=== PATIENT | female | born 1980 | race Caucasian/White ===

== ENCOUNTER → 2016-03-05 | Outpatient (CLI) | payer OTHER ==
--- NOTE | 2016-03-05 13:39 | US ---
March 05, [address] Corona, Thank you for allowing us to see your patient regarding AMA< CHTN, renal pelvis dilation. As you kno fransisco she is a 35 year-old 1, para 0. Her due date is 04/20/16 which is based on . Her curren t gestational age based on this dating is 33 weeks 3 days. She was seen previously for the same. Number of fetuses: 1 Placental location: posterior no previa presentation: vertex Cervix: 3.7 cm MINH of 10. 5 cm Measurements: Biparietal diameter: 88 mm 35 weeks, 5 days Head circumference: 324 mm 36 weeks, 5 days Abdominal circumference: 308 mm 24 weeks, 6 days Femur length: 687 mm 35 weeks, 0 days Humerus length: 59 mm 34 weeks, 0 days Transcerebellar diameter: 42 mm 33 weeks, 3 days Average ultrasound age: 35 weeks, 4 days Estimated weight: 2586 gm weight percentile: 88 % ANATOMY anatomy was previously assessed. Today the following structures were visualized and appeared n ormal: Supratentorial brain, posterior fossa, cisterna magna 8 mm, lateral ventricle at 5 mm, heart rate 134 bpm, 4 chamber view, stomach, bladder, right and left kidneys Blood pressure today was 124/68. Impression: This is a 35 year-old, 1, para 0at 33 weeks, 3 days gestation. 1. SIUP with biometry cw ga of 33 weeks. Nl MVP. No anatomic abnormalities noted. 2. Pyelectasis resolved 3. CHTN- I reviewed preeclampsia precautions. She will need to start 2/wk NST unless already started and delivery is recommended in the 38th week. Thank you for allowing me to see your patient. Approximately 15 minutes was spent with the patient a nd 15 was spent discussing her issues. Julita Watson MD Perinatologist Division of Maternal Medicine Department of Obstetrics and Gynecology [facility]
--- NOTE | 2016-03-05 15:25 | US ---
Follow Up Obstetrical Sonography CLINICAL HISTORY: 35-year-old female with advanced maternal age and chronic hypertension treated with labetalol, noted in the past to have some mild left renal pelviectasis. TECHNIQUE: A curvilinear 5 MHz transducer was used to sonographically evaluate the fetus and the plac enta. M-mode Doppler is used. Dr. Julita Watson is present. Comparison Studies: Obstetric sonography, dated 01/01/2016 and 01/29/2016. LMP: 07/15/2015, indicating an age of 33 weeks 3 days, and an estimated date of delivery of 04/20/2016. FINDINGS: Again, there is a single viable intrauterine gestation with the fetus cephalic in presentat ion. The placenta is posteriorly situated with no previa. Maternal cervical length is normal, measuri ng 3.7 cm. The amniotic fluid volume is appropriate with a maximal vertical pocket of 3.7 cm, and an amniotic fluid index of 10.5 cm. The heart rate is 134 bpm. anatomy has been evaluated in the past. On today's study, the supra- and infratentorial structu res appear normal. The lateral ventricular diameter is 5 mm, cisterna magna is 8.3 mm. The hear t rate is 134 bpm. There is a 4 chambered heart. The stomach, right and left kidneys, and urinary danni dder are seen. There is no evidence of pelviectasis. biometry is as follows: The biparietal diameter is 88 mm, corresponding to an age of 35 weeks 5 days +/- 3 weeks 1 day, which is at the 94th percentile. The head circumference is 324 mm, corresponding to an age of 36 weeks 5 days +/- 2 weeks 5 days, whic h is at the 89th percentile. The abdominal circumference is 308 mm, corresponding to an age of 34 weeks 6 days +/- 3 weeks 0 days, which is at the 86th percentile. The femur length is 68 mm, corresponding to an age of 35 weeks 0 days +/- 3 weeks 0 days, which is at the 77th percentile. The humeral length is 59 mm, corresponding to an age of 34 weeks 0 days. The transcerebellar diameter is 42 mm, corresponding to an age of 33 weeks 3 days +/- 1 week 2 days, for a composite gestational age of 35 weeks 4 days. The estimated weight is 2586 gm +/- 378 gm, which is 5 lb 11 oz. +/- 13 ounces, which is at the 88th percentile. The head circumference to abdominal circumference ratio is 1.05 which is normal. The femur length to biparietal diameter ratio is normal, measuring 77%, and the femur length to abdominal circumference r atio is normal measuring 22%. IMPRESSION: There is a single viable intrauterine gestation with no overt structural anomaly bruce ving biometry concordant with menstrual dating and demonstrating appropriate interval growth since . Please also refer to Dr. Watson's separate assessments and specific recommendations for follow up.
== END ==
LOC: FIMAGING 12:50
PROVIDERS: ATTEND Obstetrics & Gynecology
DX: O09.513 Supervision of elderly primigravida, third trimester (principal); O10.013 Pre-existing essential hypertension complicating pregnancy, third trimester; O26.893 Other specified pregnancy related conditions, third trimester; Z3A.35 35 weeks gestation of pregnancy

== ENCOUNTER 2016-04-10 20:14 | Inpatient (IN) | payer OTHER ==
[2016-04-10] MEDS ORDERED: LR 1,000 ML IV PRN (20:58)
[2016-04-10] MEDS ORDERED: TERBUTALINE SULFATE 1 MG/ML VIAL IV PRN (20:58)
[2016-04-10] MEDS ORDERED: OXYTOCIN/RINGERS LACTATE 1,000 ML IV PRN (20:58)
[2016-04-10] MEDS ORDERED: LIDOCAINE 1% 30 ML SDV ONE (21:22)
[2016-04-10] MEDS ORDERED: TERBUTALINE SULFATE 1 MG/ML VIAL ONE (21:23)
[2016-04-10] MEDS ORDERED: MISOPROSTOL 200 MCG TAB ONE (21:23)
[2016-04-10] MEDS ORDERED: AMMONIA AROMATIC 1 EACH AMP IH ONE (21:23)
[2016-04-10] MEDS ORDERED: OXYTOCIN 10 UNIT/ML VIAL ONE (21:23)
[2016-04-10] MEDS ORDERED: ACETAMINOPHEN 325 MG TAB PO PRN (21:26)
[2016-04-10] MEDS ORDERED: diphenhydrAMINE 25 MG CAP PO PRN (21:27)
[2016-04-10] MEDS ORDERED: CALCIUM CARBONATE 500 MG CHEWABLE TAB PO PRN (21:27)
[2016-04-10 21:29] LABS: % IMMATURE GRANULYOCYTES 0.4 % (0.0-1.1); ABSOLUTE IMMATURE GRANULOCYTES 0.05 10^3/uL (0.00-0.10); ADD DIFF? NO; ADD MORPH? NO; ADD SCAN? NO; ATYPICAL LYMPHOCYTE FLAG 0 (0-99); FRAGMENT RBC FLAG 0 (0-99); HEMATOCRIT 38.9 % (38.0-47.0); HEMOGLOBIN 13.9 g/dL (12.6-16.3); LEFT SHIFT FLG 0 (0-99); LIPEMIA HEMOLYSIS FLAG 90 (0-99); MEAN CELL HEMOGLOBIN 29.9 pg (27.9-34.1); MEAN CELL HEMOGLOBIN CONCENTR. 35.7 g/dL (32.4-36.7); MEAN CELL VOLUME 83.7 fL (81.5-99.8); MEAN PLATELET VOLUME 10.6 fL (8.7-11.7); PLATELET CLUMPS FLAG 0 (0-99); PLATELET COUNT 162 10^3/uL (150-400); RED BLOOD CELL COUNT 4.65 10^6/uL (4.18-5.33)
[2016-04-10 21:46] LABS: ALANINE AMINOTRANSFERASE 29 IU/L (9-52); ASPARTATE AMINOTRANSFERASE 19 IU/L (14-46); BILIRUBIN,TOTAL 0.7 mg/dL (0.1-1.4); BILIRUBIN-CONJUGATED 0.2 mg/dL (0.0-0.5); BILIRUBIN-UNCONJUGATED 0.5 mg/dL (0.0-1.1); CREATININE 0.5 mg/dL (0.6-1.0); GLOMERULAR FILTRATION RATE > 60; LACTATE DEHYDROGENASE 472 IU/L (313-618); URIC ACID 4.1 mg/dL (2.5-6.8)
[2016-04-11] MEDS ORDERED: OXYTOCIN/LR *STANDARD DOSE PROTOCOL IV SCH (05:00)
--- NOTE | 2016-04-11 08:50 | OBPROG ---
OBG Progress Note Assessment/Plan: Assessment: Pt is a 35 y/o at 38+5 weeks EGA admitted for IOL for CHTN on meds and GDMA1 - doing well Plan: 1) status reassuring 2) Labor: Rodriguez bulb fell out overnight, AROM completed now w/ clear, blood tinged fluid noted. Continue pitocin for IOL. 3) GBS negative 4) CHTN: Will hold AM labetalol since BP's normal and lots of hemodynamic changes in labor may drop BP. PIH labs on admission normal. 5) GDMA1: Well controlled w/ diet. Will check BG levels q4 hrs in labor and notify MD if < 60 or > 200. 04/11/16 08:47 Subjective: Pt has no complaints. Feeling well. Objective: 04/10/16 21:15 04/10/16 21:15 Patient ABO/Rh A POSITIVE 04/10/16 21:15 Uric Acid 4.1 mg/dL (2.5-6.8) 04/10/16 21:15 Total Bilirubin 0.7 mg/dL (0.1-1.4) 04/10/16 21:15 Conjugated Bilirubin 0.2 mg/dL (0.0-0.5) 04/10/16 21:15 Unconjugated Bilirubin 0.5 mg/dL (0.0-1.1) 04/10/16 21:15 AST 19 IU/L (14-46) 04/10/16 21:15 ALT 29 IU/L (9-52) 04/10/16 21:15 Lactate Dehydrogenase 472 IU/L (313-618) 04/10/16 21:15 - SVE Dilation (cm): 4 Effacement (%): 50 Station: -3 Current Contraction Pattern: Irregular FHR (bpm): 140 FHR Pattern Variability: Moderate FHR Category: 1 Membranes: AROM Amniotic Fluid Color: Clear, Blood Tinged ICD10 Worksheet Patient Problems: Problems Problem Status Onset Chronic hypertension during , antepartum Acute Gestational diabetes mellitus (GDM) affecting , antepartum Acute - ICD10 Problem Qualifiers (1) Chronic hypertension during , antepartum (2) Gestational diabetes mellitus (GDM) affecting , antepartum
--- NOTE | 2016-04-11 12:33 | OBPROG ---
OBG Progress Note Assessment/Plan: Assessment: Pt is a 35 y/o at 38+5 weeks EGA admitted for IOL for CHTN on meds and GDMA1 - doing well Plan: 1) status reassuring 2) Labor: Not in active labor yet, no cervical change. Optimize titration of pitocin for IOL. 3) GBS negative 4) CHTN: BP's normal. PIH labs on admission normal. 5) GDMA1: Well controlled w/ diet. Will check BG levels q4 hrs in labor and notify MD if < 60 or > 200. 04/11/16 12:32 Subjective: No complaints, feeling contractions that are very mild. Objective: 04/10/16 21:15 04/10/16 21:15 Patient ABO/Rh A POSITIVE 04/10/16 21:15 Uric Acid 4.1 mg/dL (2.5-6.8) 04/10/16 21:15 Total Bilirubin 0.7 mg/dL (0.1-1.4) 04/10/16 21:15 Conjugated Bilirubin 0.2 mg/dL (0.0-0.5) 04/10/16 21:15 Unconjugated Bilirubin 0.5 mg/dL (0.0-1.1) 04/10/16 21:15 AST 19 IU/L (14-46) 04/10/16 21:15 ALT 29 IU/L (9-52) 04/10/16 21:15 Lactate Dehydrogenase 472 IU/L (313-618) 04/10/16 21:15 - SVE Dilation (cm): 4 Effacement (%): 50 Station: -3 Current Contraction Pattern: Irregular FHR (bpm): 140 FHR Pattern Variability: Moderate FHR Category: 1 Amniotic Fluid Color: Clear ICD10 Worksheet Patient Problems: Problems Problem Status Onset Chronic hypertension during , antepartum Acute Gestational diabetes mellitus (GDM) affecting , antepartum Acute - ICD10 Problem Qualifiers (1) Chronic hypertension during , antepartum (2) Gestational diabetes mellitus (GDM) affecting , antepartum
--- NOTE | 2016-04-11 14:48 | OBPROG ---
OBG Progress Note Assessment/Plan: Assessment: Pt is a 35 y/o at 38+5 weeks EGA admitted for IOL for CHTN on meds and GDMA1 - doing well Plan: 1) status reassuring 2) Labor: IUPC placed for better monitoring of contractions; unable to monitor them on EFM. Cervix is softer, but still 4cm. Continue w/ pitocin. 3) GBS negative 4) CHTN: BP's normal. PIH labs on admission normal. 5) GDMA1: Well controlled w/ diet. Will check BG levels q4 hrs in labor and notify MD if < 60 or > 200. 04/11/16 14:47 Subjective: Pt feeling ctx a bit more. Objective: 04/10/16 21:15 04/10/16 21:15 Patient ABO/Rh A POSITIVE 04/10/16 21:15 Uric Acid 4.1 mg/dL (2.5-6.8) 04/10/16 21:15 Total Bilirubin 0.7 mg/dL (0.1-1.4) 04/10/16 21:15 Conjugated Bilirubin 0.2 mg/dL (0.0-0.5) 04/10/16 21:15 Unconjugated Bilirubin 0.5 mg/dL (0.0-1.1) 04/10/16 21:15 AST 19 IU/L (14-46) 04/10/16 21:15 ALT 29 IU/L (9-52) 04/10/16 21:15 Lactate Dehydrogenase 472 IU/L (313-618) 04/10/16 21:15 - SVE Dilation (cm): 4 Effacement (%): 50 Station: -3 Current Contraction Pattern: Irregular FHR (bpm): 135 FHR Pattern Variability: Moderate FHR Category: 1 Amniotic Fluid Color: Clear ICD10 Worksheet Patient Problems: Problems Problem Status Onset Chronic hypertension during , antepartum Acute Gestational diabetes mellitus (GDM) affecting , antepartum Acute - ICD10 Problem Qualifiers (1) Chronic hypertension during , antepartum (2) Gestational diabetes mellitus (GDM) affecting , antepartum
--- NOTE | 2016-04-11 17:55 | OBPROG ---
OBG Progress Note Assessment/Plan: Assessment: Pt is a 35 y/o at 38+5 weeks EGA admitted for IOL for CHTN on meds and GDMA1 - doing well Plan: 1) status reassuring 2) Labor: IUPC in place. Small cervical change noted, but minimal. MVU's are not adequate, 90-150 max (mostly < 140), and we are at the max pitocin dose of 30 mU/min. Discussed that I recommend stopping the pitocin completely for 45 minutes, and restarting it at half the dose to see if the uterus responds better to the pitocin (since the receptors can sometimes get saturated). She and agree. All questions answered. 3) GBS negative 4) CHTN: BP's normal. PIH labs on admission normal. 5) GDMA1: Well controlled w/ diet. Will check BG levels q4 hrs in labor and notify MD if < 60 or > 200. 04/11/16 17:53 Subjective: Pt feels contractions, ranked 5-6/10. No other complaints. Doing well without pain interventions. Objective: 04/10/16 21:15 04/10/16 21:15 Patient ABO/Rh A POSITIVE 04/10/16 21:15 Uric Acid 4.1 mg/dL (2.5-6.8) 04/10/16 21:15 Total Bilirubin 0.7 mg/dL (0.1-1.4) 04/10/16 21:15 Conjugated Bilirubin 0.2 mg/dL (0.0-0.5) 04/10/16 21:15 Unconjugated Bilirubin 0.5 mg/dL (0.0-1.1) 04/10/16 21:15 AST 19 IU/L (14-46) 04/10/16 21:15 ALT 29 IU/L (9-52) 04/10/16 21:15 Lactate Dehydrogenase 472 IU/L (313-618) 04/10/16 21:15 - SVE Dilation (cm): 5 Effacement (%): 50 Station: -2 Current Contraction Pattern: Regular FHR (bpm): 140 FHR Pattern Variability: Moderate FHR Category: 1 Amniotic Fluid Color: Clear ICD10 Worksheet Patient Problems: Problems Problem Status Onset Chronic hypertension during , antepartum Acute Gestational diabetes mellitus (GDM) affecting , antepartum Acute - ICD10 Problem Qualifiers (1) Chronic hypertension during , antepartum (2) Gestational diabetes mellitus (GDM) affecting , antepartum
--- NOTE | 2016-04-11 21:50 | OBPROG ---
OBG Progress Note Assessment/Plan: Assessment: Pt is a 35 y/o at 38+5 weeks EGA admitted for IOL for CHTN on meds and GDMA1 - doing well Plan: 1) status reassuring 2) Labor: No cervical change noted, still 5/50/-2. Pitocin was stopped for one hour, and then restarted. Pitocin is at 23 mIU/mL, contractions are not adequate w/ MVU's of 90-120. Discussed my concern of lack of cervical change; however, discussed that it can take 18 hrs of being ruptured and on pitocin to get fully into active labor. Since the patient is afebrile and the status is reassuring, it is very reasonable to continue w/ IOL. Reviewed plan to try to get ctx adequate - will recheck her cervix after 2 hours of adequate contractions or after 2 hours of pitocin at 30 mIU/min. 3) GBS negative 4) CHTN: BP's normal. PIH labs on admission normal. 5) GDMA1: Well controlled w/ diet. Will check BG levels q4 hrs in labor and notify MD if < 60 or > 200. 6) Pain: Desires to try nitrous oxide. 04/11/16 21:44 Subjective: Pt breathing through contractions. Objective: 04/10/16 21:15 04/10/16 21:15 Patient ABO/Rh A POSITIVE 04/10/16 21:15 Uric Acid 4.1 mg/dL (2.5-6.8) 04/10/16 21:15 Total Bilirubin 0.7 mg/dL (0.1-1.4) 04/10/16 21:15 Conjugated Bilirubin 0.2 mg/dL (0.0-0.5) 04/10/16 21:15 Unconjugated Bilirubin 0.5 mg/dL (0.0-1.1) 04/10/16 21:15 AST 19 IU/L (14-46) 04/10/16 21:15 ALT 29 IU/L (9-52) 04/10/16 21:15 Lactate Dehydrogenase 472 IU/L (313-618) 04/10/16 21:15 - SVE Dilation (cm): 5 Effacement (%): 50 Station: -2 Current Contraction Pattern: Regular FHR (bpm): 140 FHR Pattern Variability: Moderate FHR Category: 1 Amniotic Fluid Color: Clear ICD10 Worksheet Patient Problems: Problems Problem Status Onset Chronic hypertension during , antepartum Acute Gestational diabetes mellitus (GDM) affecting , antepartum Acute - ICD10 Problem Qualifiers (1) Chronic hypertension during , antepartum (2) Gestational diabetes mellitus (GDM) affecting , antepartum
--- NOTE | 2016-04-12 00:17 | OBPROG ---
OBG Progress Note Assessment/Plan: Assessment: CTSP for FSE placement, but patient adamantly declines letting me place it. Pt is a 35 y/o at 38+5 weeks EGA admitted for IOL for CHTN on meds and GDMA1 - Plan: 1) status reassuring - over all reassuring, moderate variability present, +accels present. Difficulty tracing FHT continuously due to different positions. Patient advised to get FSE, device described and she adamantly refuses it. Will continue to try to monitor closely. No signs of concern during periods of monitoring, and no consistent lack of monitoring that is prolonged. 2) Labor: Declines SVE. Just reached 30 mIU/mL of pitocin. Will recheck around 3am (18 hrs of rupture). 3) GBS negative 4) CHTN: BP's normal. PIH labs on admission normal. 5) GDMA1: Well controlled w/ diet. Will check BG levels q4 hrs in labor and notify MD if < 60 or > 200. 6) Pain: Desires to try nitrous oxide. 04/12/16 00:15 Subjective: Pt feeling contractions. Objective: 04/10/16 21:15 04/10/16 21:15 Patient ABO/Rh A POSITIVE 04/10/16 21:15 Uric Acid 4.1 mg/dL (2.5-6.8) 04/10/16 21:15 Total Bilirubin 0.7 mg/dL (0.1-1.4) 04/10/16 21:15 Conjugated Bilirubin 0.2 mg/dL (0.0-0.5) 04/10/16 21:15 Unconjugated Bilirubin 0.5 mg/dL (0.0-1.1) 04/10/16 21:15 AST 19 IU/L (14-46) 04/10/16 21:15 ALT 29 IU/L (9-52) 04/10/16 21:15 Lactate Dehydrogenase 472 IU/L (313-618) 04/10/16 21:15 DECLINES SVE and FSE Current Contraction Pattern: Regular FHR (bpm): 150 FHR Pattern Variability: Moderate FHR Category: 1 Amniotic Fluid Color: Clear ICD10 Worksheet Patient Problems: Problems Problem Status Onset Chronic hypertension during , antepartum Acute Gestational diabetes mellitus (GDM) affecting , antepartum Acute - ICD10 Problem Qualifiers (1) Chronic hypertension during , antepartum (2) Gestational diabetes mellitus (GDM) affecting , antepartum
--- NOTE | 2016-04-12 03:21 | OBPROG ---
OBG Progress Note Assessment/Plan: Assessment: CTSP for FSE placement, but patient adamantly declines letting me place it. Pt is a 35 y/o at 38+5 weeks EGA admitted for IOL for CHTN on meds and GDMA1 with arrest of dilation Plan: 1) status reassuring - over all reassuring w/ cat 1 FHT 2) Labor: No significant cervical change, still 5-6cm/50/-2. Advised she has been ruptured now 18 hrs, pitocin is at max. Will recheck in 2 hours and if no change, proceed w/ delivery. 3) GBS negative 4) CHTN: BP's normal. PIH labs on admission normal. 5) GDMA1: Well controlled w/ diet. Will check BG levels q4 hrs in labor and notify MD if < 60 or > 200. 6) Pain: Nitrous oxide working well. Discussed option of CHARISSA if desired. 04/12/16 03:19 Subjective: Pt feeling contractions are stronger. Objective: 04/10/16 21:15 04/10/16 21:15 Patient ABO/Rh A POSITIVE 04/10/16 21:15 Uric Acid 4.1 mg/dL (2.5-6.8) 04/10/16 21:15 Total Bilirubin 0.7 mg/dL (0.1-1.4) 04/10/16 21:15 Conjugated Bilirubin 0.2 mg/dL (0.0-0.5) 04/10/16 21:15 Unconjugated Bilirubin 0.5 mg/dL (0.0-1.1) 04/10/16 21:15 AST 19 IU/L (14-46) 04/10/16 21:15 ALT 29 IU/L (9-52) 04/10/16 21:15 Lactate Dehydrogenase 472 IU/L (313-618) 04/10/16 21:15 - SVE Dilation (cm): 5 (5-6 cm) Effacement (%): 50 Station: -2 Current Contraction Pattern: Regular FHR (bpm): 160 FHR Pattern Variability: Moderate FHR Category: 1 ICD10 Worksheet Patient Problems: Problems Problem Status Onset Chronic hypertension during , antepartum Acute Gestational diabetes mellitus (GDM) affecting , antepartum Acute - ICD10 Problem Qualifiers (1) Chronic hypertension during , antepartum (2) Gestational diabetes mellitus (GDM) affecting , antepartum
[2016-04-12] MEDS ORDERED: ceFAZolin 2 GM/DEXTROSE 100 ML IV ONE (03:59)
[2016-04-12] MEDS ORDERED: LR 500 ML IV ONE (03:59)
[2016-04-12] MEDS ORDERED: LR 1,000 ML IV SCH (04:00)
[2016-04-12] MEDS ORDERED: HEMABATE 250 MCG/1 ML AMP IM ONE (04:31)
[2016-04-12] MEDS ORDERED: METHYLERGONOVINE MAL 0.2 MG/ML INJ ONE (04:31)
[2016-04-12] MEDS ORDERED: CITRIC ACID/SODIUM CITRATE 30 ML UDCUP ONE (04:34)
[2016-04-12] MEDS ORDERED: PHENYLEPHRINE HCL 100 MCG/ML SYR ONE (04:36)
[2016-04-12] MEDS ORDERED: fentaNYL 100 MCG/2 ML INJ ONE (04:36)
[2016-04-12] MEDS ORDERED: morphINE PF 5 MG/10 ML INJ ONE (04:36)
[2016-04-12] MEDS ORDERED: LABETALOL HCL 5 MG/ML 20 ML MDV IVP PRN (04:48)
[2016-04-12] MEDS ORDERED: ONDANSETRON 4 MG/2 ML VIAL IVP PRN (04:48)
[2016-04-12] MEDS ORDERED: METOCLOPRAMIDE 10 MG/2 ML VIAL IVP PRN (04:48)
[2016-04-12] MEDS ORDERED: NALOXONE HCL 0.4 MG/ML INJ IVP PRN (04:48)
[2016-04-12] MEDS ORDERED: PHENYLEPHRINE HCL 100 MCG/ML SYR IVP PRN (04:48)
[2016-04-12] MEDS ORDERED: MEPERIDINE 25 MG/ML SYR IVP PRN (04:48)
[2016-04-12] MEDS ORDERED: fentaNYL 100 MCG/2 ML INJ IVP PRN (04:48)
--- NOTE | 2016-04-12 04:48 | PREANESOB ---
Obstetric Pre-Anesthesia Info - General Info Proposed Procedure: : 1 Para: 0 - Info Status: Full Term, Hansen Monitors: External FHR Pattern: Reassuring - Labor Status Cervical Dilation per last OB SVE: 5 (5-6 cm) Station per last OB SVE: -2 Amniotic Fluid Color: Clear Pitocin: In Use PIH: No Magnesium Sulfate in Use: No Section History: Primary Indications for Current Section: Arrest of Descent Labor Epidural: No (Plan SAB for C/S.) Anesthesia Allergies/Adverse Reactions: Allergy/AdvReac Type Severity Reaction Status Date / Time No Known Allergies Allergy Unverified 04/10/16 20:41 Home Medications: Medication Instructions Recorded Aspirin 81 mg PO DAILY 04/10/16 Fexofenadine HCl [Adali Allergy] 60 mg PO DAILY 04/10/16 Labetalol HCl [Trandate 100 mg (*)] 100 mg PO BID 04/10/16 Lactobacillus Acidophilus 1 each PO DAILY 04/10/16 [Probiotic] Nasacort 2 puffs IH DAILY 04/10/16 Everson-3 Fatty Acids [Fish Oil] 500 mg PO DAILY 04/10/16 Vit27&Calcium/Iron/FA 1 each PO DAILY 04/10/16 [ Rx 1 Tablet (RX)] Visit Medications: Generic Name Dose Route Start Last Admin Trade Name Kleberq PRN Reason Stop Dose Admin Acetaminophen 650 mg 04/10/16 21:26 Tylenol PO 10/07/16 21:25 Q4 PRN Pain, Mild Calcium Carbonate 1,000 mg 04/10/16 21:27 Tums PO 10/07/16 21:26 Q4 PRN HEARTBURN Diphenhydramine HCl 25 mg 04/10/16 21:27 Benadryl PO 10/07/16 21:26 HS PRN Sleep/Insomnia Lactated Ringer's 1,000 mls @ 0 mls/hr 04/10/16 20:58 04/11/16 05:09 Lr IV 10/07/16 20:57 1,000 mls PRN PRN Administration SEE PROTOCOL CONDITIONS Protocol Per Protocol Oxytocin/Lactated Ringer's 1,000 mls @ 150 mls/hr 04/10/16 20:58 Pitocin 20 Units/Lr (Premix) IV PRN PRN Post- bleeding Oxytocin/Lactated Ringer's 500 mls @ 0 mls/hr 04/11/16 05:00 04/11/16 05:09 Pitocin 30 Units/Lr (Premix) IV 10/08/16 04:59 500 mls CONT HELLEN Administration Protocol Per Protocol Lactated Ringer's 1,000 mls @ 125 mls/hr 04/12/16 04:00 Lr IV 10/09/16 03:59 CONT HELLEN Ibuprofen 600 mg 04/10/16 20:58 Motrin PO 10/07/16 20:57 Q6HRS PRN post , inflammation Terbutaline Sulfate 0.25 mg 04/10/16 20:58 Brethine IV 10/07/16 20:57 ONCE PRN Tachysystole Discontinued Medications Generic Name Dose Route Start Last Admin Trade Name Freq PRN Reason Stop Dose Admin Ammonia (Aromatic Spirit) Confirm 04/10/16 21:23 Ammonia Aromatic Administered 04/10/16 21:24 Dose 1 each IH .STK-MED ONE Carboprost Tromethamine Confirm 04/12/16 04:31 Hemabate Administered 04/12/16 04:32 Dose 250 mcg IM .STK-MED ONE Citric Acid/Sodium Citrate Confirm 04/12/16 04:34 Bicitra Administered 04/12/16 04:35 Dose 30 ml .ROUTE .STK-MED ONE Ephedrine Sulfate Confirm 04/10/16 21:23 Ephedrine Sulfate Administered 04/10/16 21:24 Dose 50 mg .ROUTE .STK-MED ONE Fentanyl Confirm 04/12/16 04:36 Sublimaze Administered 04/12/16 04:37 Dose 100 mcg .ROUTE .STK-MED ONE Cefazolin Sodium/Dextrose 100 mls @ 200 mls/hr 04/12/16 03:59 04/12/16 04:38 Ancef 2 Gm (Premix) IV 04/12/16 04:28 100 mls ONCALL ONE Administration Protocol Lactated Ringer's 500 mls @ 0 mls/hr 04/12/16 03:59 Lr IV 04/12/16 04:00 ONCE ONE As Directed Lidocaine HCl Confirm 04/10/16 21:22 Lidocaine Hcl 1% Administered 04/10/16 21:23 Dose 30 ml .ROUTE .STK-MED ONE Methylergonovine Maleate Confirm 04/12/16 04:31 Methergine Administered 04/12/16 04:32 Dose 0.2 mg .ROUTE .STK-MED ONE Misoprostol Confirm 04/10/16 21:23 Cytotec Administered 04/10/16 21:24 Dose 1,000 mcg .ROUTE .STK-MED ONE Morphine Sulfate Confirm 04/12/16 04:36 Morphine Pf 5 Mg/10 Ml Administered 04/12/16 04:37 Dose 5 mg .ROUTE .STK-MED ONE Oxytocin Confirm 04/10/16 21:23 Pitocin Administered 04/10/16 21:24 Dose 30 unit .ROUTE .STK-MED ONE Phenylephrine HCl Confirm 04/12/16 04:36 Judd-Synephrine Administered 04/12/16 04:37 Dose 1,000 mcg .ROUTE .STK-MED ONE Terbutaline Sulfate Confirm 04/10/16 21:23 Brethine Administered 04/10/16 21:24 Dose 1 mg .ROUTE .STK-MED ONE - Focused Exam Height/Weight (Nursing): Height 168.91 cm Weight 108.862 kg Labs: 04/10/16 21:15 04/10/16 21:15 Patient ABO/Rh A POSITIVE 04/10/16 21:15 Uric Acid 4.1 mg/dL (2.5-6.8) 04/10/16 21:15 Total Bilirubin 0.7 mg/dL (0.1-1.4) 04/10/16 21:15 Conjugated Bilirubin 0.2 mg/dL (0.0-0.5) 04/10/16 21:15 Unconjugated Bilirubin 0.5 mg/dL (0.0-1.1) 04/10/16 21:15 AST 19 IU/L (14-46) 04/10/16 21:15 ALT 29 IU/L (9-52) 04/10/16 21:15 Lactate Dehydrogenase 472 IU/L (313-618) 04/10/16 21:15
[2016-04-12] MEDS ORDERED: SIMETHICONE 80 MG TAB CHEW PO PRN (04:56)
[2016-04-12] MEDS ORDERED: PROMETHAZINE HCL 25 MG/ML INJ IVP PRN (04:56)
--- NOTE | 2016-04-12 04:56 | OBPROG ---
OBG Progress Note Assessment/Plan: Assessment: RN notified me that the patient desires to proceed with section. Pt is a 35 y/o at 38+5 weeks EGA admitted for IOL for CHTN on meds and GDMA1 with arrest of dilation Plan: 1) status reassuring - over all reassuring w/ cat 1 FHT 2) Labor: Arrest of dilation. 3) GBS negative 4) CHTN: BP's normal. PIH labs on admission normal. 5) GDMA1: Well controlled w/ diet. Will check BG levels q4 hrs in labor and notify MD if < 60 or > 200. 6) Pain: Nitrous oxide working well. Discussed option of CHARISSA if desired. Counseling: all risks/benefits/indications/alternatives of primary delivery reviewed to include risks of infection, bleeding, damage to surrounding structures and organs, blood transfusion and hysterectomy. She agrees to proceed. Consents signed. 04/12/16 04:54 Subjective: Pt desires to proceed w/ Objective: 04/10/16 21:15 04/10/16 21:15 Patient ABO/Rh A POSITIVE 04/10/16 21:15 Uric Acid 4.1 mg/dL (2.5-6.8) 04/10/16 21:15 Total Bilirubin 0.7 mg/dL (0.1-1.4) 04/10/16 21:15 Conjugated Bilirubin 0.2 mg/dL (0.0-0.5) 04/10/16 21:15 Unconjugated Bilirubin 0.5 mg/dL (0.0-1.1) 04/10/16 21:15 AST 19 IU/L (14-46) 04/10/16 21:15 ALT 29 IU/L (9-52) 04/10/16 21:15 Lactate Dehydrogenase 472 IU/L (313-618) 04/10/16 21:15 ICD10 Worksheet Patient Problems: Problems Problem Status Onset Chronic hypertension during , antepartum Acute Gestational diabetes mellitus (GDM) affecting , antepartum Acute - ICD10 Problem Qualifiers (1) Chronic hypertension during , antepartum (2) Gestational diabetes mellitus (GDM) affecting , antepartum
[2016-04-12] MEDS ORDERED: OXYTOCIN/RINGERS LACTATE 1,000 ML IV SCH (05:00)
[2016-04-12] MEDS ORDERED: OXYTOCIN 100 UNITS/10 ML VIAL ONE (05:34)
--- NOTE | 2016-04-12 06:15 | OBPROC ---
- Delivery Pre-op Diagnoses: 1) IUP at 38+6 wks, 2) CHTN, 3) GDMA1, 4) Arrest of dilation Post-op Diagnoses: same as above, OT position Procedure: Primary, Low Transverse Surgeon: Destini Corona Bus Info Consultant: Madai Herman Anesthesiologist: Dawood Torre Anesthesia: Spinal Complications: None Findings: Baby in direct ROT position IV Fluid (ml): 1,000 EBL: 800 cc Drains: Other (Specify) (durant to gravity) - Clay Info Infant A Delivery Date: 04/12/16 Delivery Time: 05:24 Sex of : Female Weight (gm): 3574 g Score (1 Min): 8 Score (5 Min): 9
[2016-04-12] MEDS ORDERED: ceFAZolin 2 GM/DEXTROSE 100 ML IV SCH (06:30)
--- NOTE | 2016-04-12 06:43 | POSTANESTH ---
Post Anesthetic Evaluation Cardiovascular Status: Normal, Stable, Similar to Pre-Op Cond Respiratory Status: Normal, Stable, Similar to Pre-op Cond. Level of Consciousness/Mental Status: Can Participate in Eval, Alert and Oriented Pain Control: Adequate, Prn Tx Ordered Nausea/Vomiting Control: Adequate, Prn Tx Ordered Complications Possibly Related to Anesthesia: None Noted
--- NOTE | 2016-04-12 07:03 | GOP ---
DATE OF OPERATION: 04/12/2016 SURGEON: Destini Corona MD ANESTHESIA: Spinal by Denilson Baptiste. PREOPERATIVE DIAGNOSIS: 1. Intrauterine at 38 weeks and 6 days. 2. Chronic hypertension on labetalol. 3. Gestational diabetes type A1. 4. Failure to progress and arrest of dilation. POSTOPERATIVE DIAGNOSIS: 1. Intrauterine at 38 weeks and 6 days. 2. Chronic hypertension on labetalol. 3. Gestational diabetes type A1. 4. Failure to progress and arrest of dilation. 5. Malposition of fetus with delivery in right occiput transverse position. PROCEDURE PERFORMED: Primary low transverse section. FINDINGS: 1. Delivered a female infant, weighing 3574 g with Apgars of 8 and 9 in the direct right occiput transverse position. 2. Normal uterus, fallopian tubes, and ovaries bilaterally. ESTIMATED BLOOD LOSS: 800 cc DESCRIPTION OF PROCEDURE: The patient was taken to the operating room, where spinal anesthesia was found to be adequate. Patient was prepared and draped in normal sterile fashion in dorsal supine po sition with a left tilt. After confirmation of adequate anesthesia and administration of Ancef 2 g IV, a low transverse skin incision was made in the usual fashion and carried down to the level of th e fascia using the scalpel and Bovie for hemostasis. The fascia was incised in the midline, extende d laterally bilaterally with the Cyr scissors. The fascia was dissected off the rectus muscles sup eriorly and inferiorly using the Bovie. The peritoneal cavity was entered by grasping the perineum and entering sharply with Metzenbaum scissors. This incision was extended superiorly and inferiorly with stretching. Bladder blade was placed. An incision was made in the vesicouterine perineum and the bladder was dissected away from the lower uterine segment digitally. The bladder blade was rem stephen and an Michael retractor was then placed. A low transverse uterine incision was made and extend ed laterally digitally. The baby was delivered atraumatically in the occiput transverse position. The baby was bulb suctioned and delayed cord clamping was completed for 1 minute. With that, neonat al nurse practitioner present. The cord was doubly clamped and cut and baby handed off to the [facility] nurse practitioner. First cord blood was obtained, then the placenta was delivered with uterine massage. The uterus was exteriorized on the maternal abdomen and wiped with dry lap sponge s to remove all residual membranes. The uterine incision was then closed with a running lock stitch of 0 Monocryl. A second imbricating layer of closure was completed using the same suture. The inc ision was hemostatic. Pitocin had been administered and one additional dose of Hemabate was adminis tered due to mild uterine atony. The posterior cul-de-sac was irrigated with copious amounts of nor mal saline. The uterus was placed back in the maternal abdomen and the gutters were wiped with mois t lap sponges bilaterally. The uterine incision was reexamined and hemostasis was assured. The rec tus muscle surfaces and fascial surfaces were examined closely and hemostasis was visualized. The f ascia was then closed with a running nonlocked stitch of #1 PDS. The subcutaneous tissue was then i rrigated with copious amounts of normal saline and hemostasis was obtained with the use of the Bovie . The subcutaneous tissue was reapproximated with a running stitch of 2-0 Vicryl. The skin was tere sed with a subcuticular stitch of 4-0 Monocryl. Steri-Strips and a bandage dressing was placed. A vaginal Crede exam was performed with a small amount of dark blood removed from the vaginal vault. The uterus was firm. All sponge, lap and needle counts were correct x2. The patient was transfer red to the PACU in stable and good condition. COMPLICATIONS: None. IV FLUIDS: 1000 cc. URINE OUTPUT: 150 cc. DRAINS: Rodriguez to gravity. /[id number]/MODL
[2016-04-12] MEDS: KETOROLAC 30 MG/1 ML SDV IVP PRN ×3 (07:46→20:24)
[2016-04-12] MEDS ORDERED: DIPHENOXYLATE/ATROPINE LOMOTIL 1 TAB PO ONE (08:30)
[2016-04-12] MEDS: ceFAZolin 2 GM in D5W 100 ML IV SCH ×2 (13:53→21:57)
[2016-04-12] MEDS: HYDROCODONE/APAP 5/325 TAB PO PRN ×2 (17:26→21:56)
[2016-04-12] MEDS: DOCUSATE SODIUM 100 MG CAP PO PRN (20:24)
[2016-04-13] MEDS: KETOROLAC 30 MG/1 ML SDV IVP PRN (02:56)
[2016-04-13] MEDS: HYDROCODONE/APAP 5/325 TAB PO PRN ×6 (02:56→20:31)
[2016-04-13 04:06] LABS: % IMMATURE GRANULYOCYTES 0.4 % (0.0-1.1); ABSOLUTE IMMATURE GRANULOCYTES 0.06 10^3/uL (0.00-0.10); ADD DIFF? NO; ADD MORPH? NO; ADD SCAN? NO; ATYPICAL LYMPHOCYTE FLAG 0 (0-99); FRAGMENT RBC FLAG 0 (0-99); HEMATOCRIT 33.3 % (38.0-47.0); HEMOGLOBIN 11.8 g/dL (12.6-16.3); LEFT SHIFT FLG 0 (0-99); LIPEMIA HEMOLYSIS FLAG 90 (0-99); MEAN CELL HEMOGLOBIN 29.9 pg (27.9-34.1); MEAN CELL HEMOGLOBIN CONCENTR. 35.4 g/dL (32.4-36.7); MEAN CELL VOLUME 84.3 fL (81.5-99.8); MEAN PLATELET VOLUME 10.3 fL (8.7-11.7); PLATELET CLUMPS FLAG 0 (0-99); PLATELET COUNT 156 10^3/uL (150-400); RED BLOOD CELL COUNT 3.95 10^6/uL (4.18-5.33); RED CELL DISTRIBUTION WIDTH 14.2 % (11.5-15.2)
[2016-04-13 04:22] LABS: ALANINE AMINOTRANSFERASE 33 IU/L (9-52); ALBUMIN 3.2 g/dL (3.5-5.0); ALKALINE PHOSPHATASE 102 IU/L (38-126); ANION GAP 8 mEq/L (8-16); ASPARTATE AMINOTRANSFERASE 26 IU/L (14-46); BILIRUBIN,TOTAL 0.9 mg/dL (0.1-1.4); CALCIUM 8.8 mg/dL (8.5-10.4); CARBON DIOXIDE 20 mEq/l (22-31); CHLORIDE 105 mEq/L (97-110); CREATININE 0.6 mg/dL (0.6-1.0); GLOMERULAR FILTRATION RATE > 60; GLUCOSE 91 mg/dL (70-100); POTASSIUM 4.2 mEq/L (3.5-5.2); SODIUM 133 mEq/L (134-144)
[2016-04-13] MEDS: DOCUSATE SODIUM 100 MG CAP PO PRN ×2 (07:25→20:30)
[2016-04-13] MEDS: ceFAZolin 2 GM in D5W 100 ML IV SCH (07:25)
[2016-04-13] MEDS: IBUPROFEN 600 MG TAB PO PRN ×3 (09:27→22:49)
--- NOTE | 2016-04-13 09:42 | SOAPPROG ---
SOAP Progress Note Assessment/Plan: Assessment: POD#1 s/p pLTCS EBL 800 Recovering well CHTN, no meds currently, BPs WNL A1GDM Baby monitored for blood sugars Rh+ Plan: Routine post-op care Ambulate Monitor blood pressures Repeat GTT at 6 weeks 04/13/16 09:39 Subjective: Doing really well, pain controlled with medications. Already ambulating and voiding after durant removed. Tolerating regular breakfast. No heavy bleeding. No symptoms of anemia. Objective: Vital Signs Temp Pulse Resp BP Pulse Ox 36.5 C 84 18 107/68 95 04/13/16 04:00 04/13/16 04:00 04/13/16 04:00 04/13/16 04:00 04/13/16 04:00 Laboratory Results 04/13/16 03:58 04/13/16 03:58 04/12/16 04/13/16 04/14/16 05:59 05:59 05:59 Intake Total 6600 Output Total 3200 Balance 3400 Gen: alert, awake, NAD Resp: CTAB CV: RRR Abd: soft, non distended, appropriately tender, + bowel sounds Incision: c/d/i with steri-strips Ext: no edema ICD10 Worksheet Patient Problems: Problems Problem Status Onset Chronic hypertension during , antepartum Acute Gestational diabetes mellitus (GDM) affecting , antepartum Acute
[2016-04-13] MEDS ORDERED: MEASLES,MUMPS&RUBELLA VACC/PF 0.5 ML VIAL SC ONE ×2 (10:00→12:30)
[2016-04-14] MEDS: HYDROCODONE/APAP 5/325 TAB PO PRN ×3 (00:26→08:33)
[2016-04-14] MEDS: IBUPROFEN 600 MG TAB PO PRN ×4 (04:32→22:25)
[2016-04-14] MEDS ORDERED: POLYETHYLENE GLYCOL 3350 17 GM PKT PO PRN (10:29)
[2016-04-14] MEDS ORDERED: LACTULOSE 20 GM/30 ML UDCUP PO PRN (10:29)
[2016-04-14] MEDS ORDERED: BISACODYL 10 MG SUPP PR PRN (10:29)
[2016-04-14] MEDS ORDERED: MAGNESIUM HYDROXIDE 30 ML UDCUP PO PRN (10:29)
--- NOTE | 2016-04-14 10:33 | SOAPPROG ---
SOAP Progress Note Assessment/Plan: Assessment: POD#2 s/p pLTCS EBL 800 Recovering well however pain control not adequate CHTN, no meds currently, BPs WNL A1GDM Baby now on bili lights Rh+ Plan: Routine post-op care Trial percocet, D/C [place] Continue abd binder Bowel protocol Send UA/Cx Ambulate Monitor blood pressures Repeat GTT at 6 weeks 04/13/16 09:39 04/14/16 10:31 04/14/16 10:33 Subjective: Jumped out of bed when baby vomited and really was painful, and still it is really uncomfortable when she gets up or down or coughs or sneezes or laughs. Also had some pain with urination, at the end of stream today. Pumping has been hit or miss. Baby under bili lights. Ambulating and passing flatus, but no BM. Objective: Vital Signs Temp Pulse Resp BP Pulse Ox 36.3 C 72 16 92/62 L 92 04/14/16 04:30 04/14/16 04:30 04/14/16 04:30 04/14/16 04:30 04/14/16 04:30 Laboratory Results 04/13/16 03:58 04/13/16 03:58 04/13/16 04/14/16 04/15/16 05:59 05:59 05:59 Intake Total 6600 Output Total 3200 600 Balance 3400 -600 Gen: NAD Resp: unlabored CV: reg rate Abd: moderately distended, soft, appropriately tender Incision: c/d/i with steri strips Ext: no edema ICD10 Worksheet Patient Problems: Problems Problem Status Onset Chronic hypertension during , antepartum Acute Gestational diabetes mellitus (GDM) affecting , antepartum Acute
[2016-04-14] MEDS: OXYCODONE/APAP 5/325 TAB PO PRN ×3 (13:00→23:59)
[2016-04-14] MEDS: DOCUSATE SODIUM 100 MG CAP PO PRN (13:00)
[2016-04-14 17:05] LABS: COLOR PALE YELLOW; LEUKOCYTE ESTERASE,URINE NEGATIVE (NEGATIVE); NITRITE,URINE NEGATIVE (NEGATIVE)
[2016-04-14] MEDS: SENNOSIDES/DOCUSATE SODIUM TAB PO SCH (20:38)
[2016-04-15] MEDS: IBUPROFEN 600 MG TAB PO PRN ×3 (04:30→16:45)
[2016-04-15] MEDS: OXYCODONE/APAP 5/325 TAB PO PRN ×3 (06:15→16:46)
--- NOTE | 2016-04-15 08:02 | SOAPPROG ---
SOAP Progress Note Assessment/Plan: Assessment: 35 y.o. POD #3 s/p primary C/S for failure to progress. Recovering well with good pain control and incision CDI. Plan: Routine orders and care. consult. Anticipate discharge tomorrow. 04/15/16 07:59 Subjective: Reports good pain control and minimal vaginal bleeding. Pumping with assistance. under bili-lights due to elevated bilirubin. Incision CDI. Eating and drinking well without nausea or vomiting. Appropriate mood with good support system. Objective: Vital Signs Temp Pulse Resp BP Pulse Ox 37.4 C 80 18 123/81 H 95 04/14/16 19:45 04/14/16 19:45 04/14/16 19:45 04/14/16 19:45 04/14/16 19:45 Laboratory Results 04/13/16 03:58 04/13/16 03:58 04/14/16 04/15/16 04/16/16 05:59 05:59 05:59 Output Total 600 Balance -600 - Time Spent With Patient Time Spent With Patient: 20 minutes - Pending Discharge Pending Discharge Within 24 Hours: Yes Pending Discharge Date: 04/16/16 Pending Discharge Time: 11:00 Physical Exam - Physical Exam General Appearance: WD/WN, alert, no apparent distress EENT: normal ENT inspection Neck: non-tender, full range of motion Respiratory: lungs clear, normal breath sounds Cardiac/Chest: regular rate, rhythm Abdomen: non-tender, soft Pelvic Exam: normal external exam Rectal: deferred Back: Normal inspection Skin: normal color, warm/dry Lymphatic: no adenopathy Extremities: normal range of motion, non-tender Neuro/Psych: alert, normal mood/affect, oriented x 3 ICD10 Worksheet Patient Problems: Problems Problem Status Onset Chronic hypertension during , antepartum Acute Gestational diabetes mellitus (GDM) affecting , antepartum Acute
[2016-04-15] MEDS: SENNOSIDES/DOCUSATE SODIUM TAB PO SCH ×2 (10:27→20:58)
[2016-04-15] MEDS: DOCUSATE SODIUM 100 MG CAP PO PRN (10:28)
[2016-04-15 20:27] VITALS: RESP 16
[2016-04-16] MEDS: DOCUSATE SODIUM 100 MG CAP PO PRN (00:31)
[2016-04-16] MEDS: IBUPROFEN 600 MG TAB PO PRN ×3 (00:31→12:37)
[2016-04-16] MEDS: OXYCODONE/APAP 5/325 TAB PO PRN ×4 (00:55→12:37)
--- NOTE | 2016-04-16 08:14 | OBGCSDC ---
General Delivery Information - General Info : 1 Para: 1 Delivery Date: 04/12/16 Delivery Time: 05:24 Delivery Physician/CNM: Destini Corona Admission Date: 04/10/16 Labs: Patient ABO/Rh A POSITIVE 04/10/16 21:15 Hct 33.3 % (38.0-47.0) L 04/13/16 03:58 - [place] Info A [place] Weight (gm): 3574 g Sex of : Female Score (1 Min): 8 Score (5 Min): 9 Vaginal - Diagnosis Amniotic Fluid Color: Clear - Delivery IUP (Weeks): 38 weeks Number of Prior Sections: 0 Indications for Current Section: Arrest of Dilation Procedures: LTCS Intra-op Complications: None EBL: 800 cc Anesthesia: Spinal Discharge Information - Discharge Information Discharge Medications: Ibuprofen, Percocet, Vitamins Condition: Good Instruction/Follow Up: Two Weeks Discharge Physician/CNM: Yumi Ellis Discharge Date: 04/16/16 Dictated: No
[2016-04-16] MEDS ORDERED: MEASLES,MUMPS&RUBELLA VACC/PF 0.5 ML VIAL SC ONE (08:17)
[2016-04-16] MEDS ORDERED: SULFAMETHOX/TMP 800/160 MG 1 TAB PO SCH (09:00)
[2016-04-16 10:07] VITALS: BP 129/87; PULSE 76; TEMP 98.5; O2SAT 96
[2016-04-16] MEDS: SENNOSIDES/DOCUSATE SODIUM TAB PO SCH (12:38)
== END 2016-04-16 13:30 | disposition home or self-care (01) | DRG 765 ==
LOC: FLD 20:14 → FOB 04-12 09:33
PROVIDERS: ADMIT Obstetrics & Gynecology; ATTEND Obstetrics & Gynecology
PROC: 10D00Z1 Extraction of Products of Conception, Low, Open Approach (ICD-10-PCS; principal; 2016-04-12)
PROC: 3E033VJ Introduction of Other Hormone into Peripheral Vein, Percutaneous Approach (ICD-10-PCS; principal; 2016-04-12)
DX: O62.1 Secondary uterine inertia (principal); O10.013 Pre-existing essential hypertension complicating pregnancy, third trimester; O24.420 Gestational diabetes mellitus in childbirth, diet controlled; Z37.0 Single live birth; Z3A.38 38 weeks gestation of pregnancy; O09.523 Supervision of elderly multigravida, third trimester; O32.8XX0 Maternal care for other malpresentation of fetus, not applicable or unspecified
CPT/HCPCS: G0463; J0690; J1885; J2210; J2274; J2370; J2590; J3010; J3105

== ENCOUNTER 2016-05-12 20:56 | Emergency (ER) | payer OTHER ==
[2016-05-12 21:22] VITALS: BP 153/99; PULSE 90; RESP 16; TEMP 99.7; O2SAT 96
[2016-05-12] MEDS ORDERED: AMOXICILLIN/CLAVULANATE POT 875/125 MG TAB PO ONE (21:42)
--- NOTE | 2016-05-12 21:46 | UCPHY ---
H & P Patient Type: New Chief Complaint Nursing Narrative: body aches, achey joints, temp high of 103, started friday. Time Seen by Provider: 05/12/16 21:27 HPI/ROS: CHIEF COMPLAINT: Fever, breast pain HISTORY OF PRESENT ILLNESS: Patient is a 35-year-old healthy woman who comes to the Urgent Care complaining of left-sided breast plain, erythema and a fever with body aches. She has been breast-feeding for 1 month. She states that she does have problems with her child latching. She has not had a sore throat, runny nose or upper respiratory symptoms. No shortness of breath. No abdominal pain or GI or symptoms. REVIEW OF SYSTEMS: Constitutional: See HPI EENTM: denies: blurred vision, double vision, nose congestion Respiratory: denies: cough, shortness of breath Cardiac: denies: chest pain, irregular heart rate, lightheadedness, palpitations Gastrointestinal/Abdominal: denies: abdominal pain, diarrhea, nausea, vomiting, blood streaked stools Genitourinary: denies: dysuria, frequency, hematuria, pain Musculoskeletal: denies: joint pain, muscle pain Skin: See HPI Neurological: denies: headache, numbness, paresthesia, tingling, dizziness, weakness Hematologic/Lymphatic: denies: blood clots, easy bleeding, easy bruising Immunologic/allergic: denies: HIV/AIDS, transplant EXAM: GENERAL: Well-appearing, well-nourished and in no acute distress. HEAD: Atraumatic, normocephalic. EYES: Pupils equal round and reactive to light, extraocular movements intact, sclera anicteric, conjunctiva are normal. ENT: TMs normal, nares patent, oropharynx clear without exudates. Moist mucous membranes. NECK: Normal range of motion, supple without lymphadenopathy or JVD. LUNGS: Breath sounds clear to auscultation bilaterally and equal. No wheezes rales or rhonchi. HEART: Regular rate and rhythm without murmurs, rubs or gallops. ABDOMEN: Soft, nontender, normoactive bowel sounds. No guarding, no rebound. No masses appreciated. BACK: No CVA tenderness, no spinal tenderness, step-offs or deformities EXTREMITIES: Normal range of motion, no pitting or edema. No clubbing or cyanosis. NEUROLOGICAL: Cranial nerves II through XII grossly intact. Normal speech, normal gait. 5/5 strength, normal movement in all extremities, normal sensation PSYCH: Normal mood, normal affect. SKIN: Left breast erythematous and tender, no palpable abscess, no unusual discharge Source: Patient Exam Limitations: No limitations - Medical/Surgical History Hx Asthma: Yes Hx Chronic Respiratory Disease: No Hx Diabetes: Yes Hx Cardiac Disease: No Hx Renal Disease: No Hx Cirrhosis: No Hx Alcoholism: No Hx HIV/AIDS: No Hx Splenectomy or Spleen Trauma: No Other PMH: GEST DIAB, DIET CONTROLLED; CHRONIC HTN, LABETALOL; WELL-CONTROLLED ASTHMA, RARELY USES RESCUE INHALER; WISDOM TEETH REM'D; DOESN'T KNOW OF ANY FAMILY PROBLEMS WITH ANESTHESIA, csection 04/12/16 - Family History Significant Family History: No pertinent family hx - Social History Smoking Status: Never smoked Alcohol Use: Sober Drug Use: None Constitutional: Initial Vital Signs Temperature (C) 37.6 C 05/12/16 21:15 Heart Rate 90 05/12/16 21:15 Respiratory Rate 16 05/12/16 21:15 Blood Pressure 153/99 H 05/12/16 21:15 O2 Sat (%) 96 05/12/16 21:15 O2 Delivery Mode Room Air Allergies/Adverse Reactions: No Known Allergies Allergy (Unverified 04/10/16 20:41) Home Medications: Medication Instructions Recorded Fexofenadine HCl [Adali Allergy] 60 mg PO DAILY 04/10/16 Lactobacillus Acidophilus 1 each PO DAILY 04/10/16 [Probiotic] Nasacort 2 puffs IH DAILY 04/10/16 [place]-3 Fatty Acids [Fish Oil] 500 mg PO DAILY 04/10/16 Vit27&Calcium/Iron/FA 1 each PO DAILY 04/10/16 [] Docusate Sodium [Colace 100 MG (*)] 100 mg PO BID PRN #60 cap 04/16/16 Ibuprofen [Motrin (*)] 600 mg PO Q6HRS PRN #60 tab 04/16/16 Labetalol HCl [Trandate 100 mg (*)] 100 mg PO BID #60 tab 04/16/16 oxyCODONE/APAP 5/325 [Percocet 1 - 2 tab PO Q6HRS PRN #30 tab 04/16/16 5/325 (*)] Dicloxacillin Sodium [Dynapen 500 500 mg PO Q6H #40 cap 05/12/16 MG (*)] Medical Decision Making ED Course/Re-evaluation: The patient has mastitis. I will treat her with recommended dicloxacillin and pain medication. She understands and agrees with this plan. She declines further workup or testing. She is already taking a half tablet of Percocet every 6 hours. Differential Diagnosis: Partial list of the Differential diagnosis considered include but were not limited to; mastitis, influenza and although unlikely based on the history and physical exam, I also considered cellulitis, abscess, sepsis. I discussed these differential diagnoses and the plan with the patient as well as the usual and expected course. The patient understands that the diagnosis is provisional and that in medicine we are not always correct and that further workup is often warranted. Usual and customary warnings were given. All of the patient's questions were answered. The patient was instructed to return to the emergency department should the symptoms at all worsen or return, otherwise to followup with the physician as we discussed. - Data Points Laboratory Results: 05/12/16 21:25 Influenza Typ A,B (DFA) NEGATIVE FOR FLU (NEGATIVE) Medications Given: Discontinued Medications Amoxicillin/Clavulanate Potassium (Augmentin 875mg) 875 mg PO EDNOW ONE PRN Reason: Protocol Stop: 05/12/16 21:43 Last Admin: 05/12/16 22:16 Dose: 875 mg Dicloxacillin Sodium (Dynapen) 500 mg PO Q6H HELLEN PRN Reason: Protocol Stop: 06/11/16 21:59 Last Admin: 05/12/16 22:18 Dose: Not Given Departure - Departure Disposition: Home, Routine, Self-Care Clinical Impression: Mastitis in female Condition: Fair Instructions: Mastitis (ED) Referrals: Lacey Green MD [Primary Care Provider] - As per Instructions Prescriptions: Dicloxacillin Sodium [Dynapen 500 MG (*)] 500 mg PO Q6H #40 cap - PQRS PQRS Measurement: Not applicable
[2016-05-12] MEDS: DICLOXACILLIN NA 500 MG CAP PO SCH ×2 (22:17→22:18)
== END 2016-05-12 22:18 | disposition home or self-care (01) ==
LOC: CED 20:56
DX: O91.23 Nonpurulent mastitis associated with lactation (principal)
CPT/HCPCS: 87400-PO; 99204-PO; G0463-PO

== ENCOUNTER → 2018-04-17 | Outpatient (CLI) | payer OTHER | LOC: FIMAGING 13:17 ==

== ENCOUNTER → 2018-04-24 | Outpatient (CLI) | payer OTHER ==
[~2018-04-24] MED LIST: GADOBUTROL 10 ML VIAL IVP ONE
== END ==
LOC: FIMAGING 11:00
PROVIDERS: ATTEND Surgery
DX: C50.012 Malignant neoplasm of nipple and areola, left female breast (principal)
CPT/HCPCS: A9585; C8908

== ENCOUNTER 2018-05-22 08:28 | Day surgery (SDC) | payer OTHER ==
[2018-05-22] MEDS ORDERED: ceFAZolin 2 GM/DEXTROSE 100 ML IV ONE ×2 (08:42→09:45)
[2018-05-22] MEDS ORDERED: LIDOCAINE 1% 2 ML INJ ID PRN (08:43)
[2018-05-22] MEDS ORDERED: LR 1,000 ML IV ONE (08:43)
[2018-05-22] MEDS ORDERED: LIDOCAINE 1% 300 MG/30 ML SDV ONE (09:13)
[2018-05-22] MEDS ORDERED: ceFAZolin 3 GM in D5W 100 ML IV ONE (09:13)
[2018-05-22] MEDS ORDERED: BUPIVACAINE 0.25% 30 ML SDV ONE (09:14)
[2018-05-22] MEDS ORDERED: SODIUM BICARBONATE 50 MEQ/50 ML SYR ONE (09:14)
[2018-05-22] MEDS ORDERED: AVITENE POWDER 1 GM JAR TP ONE (09:14)
[2018-05-22] MEDS ORDERED: LABETALOL HCL 100 MG TAB PO ONE (09:16)
[2018-05-22] MEDS ORDERED: CEFAZOLIN 2 GM/DEXTROSE/100 ML BAG IV ONE (09:17)
[2018-05-22] MEDS ORDERED: NA BICARBONATE 50 MEQ/50 ML VIAL ONE (09:24)
[2018-05-22] MEDS ORDERED: BUPIVACAINE/EPI 0.25% 30 ML SDV ONE (10:08)
[2018-05-22] MEDS ORDERED: METHYLENE BLUE 0.5% 50 MG/10 ML AMP ONE (10:34)
--- NOTE | 2018-05-22 10:39 | PDHPUP ---
History & Physical Update H&P update statement: This history and physical update is based on an assessment of the patient which was completed after admission or registration (within 24 hours), but prior to the surgery/procedure. H&P update: H&P reviewed & patient examined, no change in patient's condition since H&P completed
[2018-05-22] MEDS ORDERED: MIDAZOLAM 2 MG/2 ML VIAL IVP ONE (10:45)
[2018-05-22] MEDS ORDERED: SCOPOLAMINE HYDROBROMIDE 1 MG/3 DAYS PATCH TD ONE ×3 (10:53→11:15)
[2018-05-22] MEDS ORDERED: PROPOFOL 200 MG/20 ML VIAL ONE (10:58)
[2018-05-22] MEDS ORDERED: PROPOFOL/EMULSION 500 MG/50 ML BOTTLE IV ONE ×3 (10:58→12:11)
[2018-05-22] MEDS ORDERED: fentaNYL 100 MCG/2 ML INJ ONE (10:58)
--- NOTE | 2018-05-22 10:59 | PDANEPAE ---
ANE Past Medical History - Cardiovascular History Hx Hypertension: Yes Hx Arrhythmias: No Hx Chest Pain: No Hx Coronary Artery / Peripheral Vascular Disease: No Hx CHF / Valvular Disease: No Hx Palpitations: No - Pulmonary History Hx COPD: No Hx Asthma/Reactive Airway Disease: Yes Hx Recent Upper Respiratory Infection: Yes Hx Oxygen in Use at Home: No Hx Sleep Apnea: No Sleep Apnea Screening Result - Last Documented: Negative Pulmonary History Comment: asthma, states well controlled in adult life. states on the tail end of an URI, surgeon aware - Neurologic History Hx Cerebrovascular Accident: No Hx Seizures: No Hx Dementia: No - Endocrine History Hx Diabetes: No - Renal History Hx Renal Disorders: No - Liver History Hx Hepatic Disorders: No - Neurological & Psychiatric Hx Hx Neurological and Psychiatric Disorders: No - Cancer History Hx Cancer: Yes Cancer History Comment: Paget's disease, left breast - Congenital Disorder History Hx Congenital Disorders: No - GI History Hx Gastrointestinal Disorders: No - Other Health History Other Health History: wears glasses - Chronic Pain History Chronic Pain: No - Surgical History Prior Surgeries: 03/2016. wisdom teeth removal ANE Review of Systems Review of Systems: - Exercise capacity METS (RN): 4 METS ANE Patient History - Allergies Allergies/Adverse Reactions: dicloxacillin Allergy (Verified 05/15/18 15:58) rash, vomiting - Home Medications Home Medications: Fexofenadine HCl [Adali Allergy] 04/10/16 [Last Taken 05/22/18] Lactobacillus Acidophilus [Probiotic] 04/10/16 [Last Taken 3 Days Ago ~05/19/18 ] Nasacort 04/10/16 [Last Taken 2 Days Ago ~05/20/18] Labetalol HCl [Trandate 100 mg (*)] 05/15/18 [Last Taken 05/22/18] Proair Hfa 05/15/18 [Last Taken 2 Years Ago ~05/22/16] Multivitamin 05/22/18 [Last Taken 2 Weeks Ago ~05/08/18] Floyd-3/Dha/Epa/Fish Oil [Fish Oil 1,000 mg Softgel] 05/22/18 [Last Taken 2 Weeks Ago ~05/08/18] - NPO status NPO Since - Liquids (Date): 05/22/18 NPO Since - Liquids (Time): 07:00 NPO Since - Solids (Date): 05/21/18 NPO Since - Solids (Time): 22:00 - Smoking Hx Smoking Status: Never smoked - Family Anes Hx Family Hx Anesthesia Complications: none ANE Labs/Vital Signs - Vital Signs Blood Pressure: 143/94 Heart Rate: 64 Respiratory Rate: 18 O2 Sat (%): 95 Height: 170.18 cm Weight: 104.326 kg ANE Physical Exam - Airway Neck exam: FROM, decreased ROM Mallampati Score: Class 1 Mouth exam: normal dental/mouth exam - ASA Status ASA Status: II ANE Anesthesia Plan Anesthesia Plan: GA w LMA
[2018-05-22] MEDS ORDERED: METOCLOPRAMIDE 10 MG/2 ML VIAL ONE (11:02)
[2018-05-22] MEDS ORDERED: RANITIDINE 50 MG/2 ML VIAL ONE (11:02)
[2018-05-22] MEDS ORDERED: DEXAMETHASONE 4 MG/ML VIAL ONE (11:21)
[2018-05-22] MEDS ORDERED: GLYCOPYRROLATE 0.2 MG/1 ML VIAL ONE (11:25)
[2018-05-22] MEDS ORDERED: KETOROLAC 30 MG/1 ML SDV ONE (12:17)
[2018-05-22] MEDS ORDERED: ONDANSETRON 4 MG/2 ML VIAL ONE (12:17)
[2018-05-22] MEDS ORDERED: fentaNYL 100 MCG/2 ML INJ IVP PRN (12:18)
[2018-05-22] MEDS ORDERED: oxyCODONE IR 5 MG TAB PO PRN (12:18)
[2018-05-22] MEDS ORDERED: HYDROCODONE/APAP 5/325 TAB PO PRN (12:18)
[2018-05-22] MEDS ORDERED: DIAZEPAM 5 MG/ML 1 ML SYR IVP PRN (12:18)
[2018-05-22] MEDS ORDERED: METOCLOPRAMIDE 10 MG/2 ML VIAL IVP PRN (12:18)
[2018-05-22] MEDS ORDERED: PROMETHAZINE HCL 25 MG/ML INJ IVP PRN (12:18)
[2018-05-22] MEDS ORDERED: HYDROmorphONE/DILAUDID 1 MG/ML INJ IVP PRN (12:18)
[2018-05-22] MEDS ORDERED: MEPERIDINE 25 MG/0.5 ML AMP IVP PRN (12:18)
[2018-05-22] MEDS ORDERED: LR 500 ML IV PRN (12:18)
[2018-05-22] MEDS ORDERED: ACETAMINOPHEN 500 MG TAB PO PRN (12:18)
[2018-05-22] MEDS ORDERED: NALOXONE HCL 0.4 MG/ML INJ IVP PRN (12:18)
[2018-05-22] MEDS ORDERED: ONDANSETRON 4 MG/2 ML VIAL IVP PRN (12:18)
[2018-05-22] MEDS ORDERED: ALBUTEROL 3 ML DEYVIAL IH PRN (12:18)
[2018-05-22] MEDS ORDERED: OXYCODONE/APAP 5/325 TAB PO PRN (13:16)
[2018-05-22] MEDS ORDERED: ONDANSETRON DISINTEGRATING 4 MG TAB PO PRN (13:16)
--- NOTE | 2018-05-22 13:16 | POSTOPPROG ---
Post Op Note Date of Operation: 05/22/18 Surgeon: Dawood Perry (, FACS) Dehydration Unit Operator: Audrey Quiles RN-FA Anesthesiologist: Karlene Darden MD Anesthesia: LMA Pre-op Diagnosis: Paget's disease left nipple Procedure: left central lumpectomy/sentinel node biopsy Findings: / sentinel nodes negative Inf/Abcess present in the surg proc area at time of surgery?: No Complications: none Bowel Protocol: N/A Clean Closure Performed: N/A Specimen(s): sentinel nodes left central lumpectomy
--- NOTE | 2018-05-22 14:03 | POSTANESTH ---
Post Anesthetic Evaluation Cardiovascular Status: Normal, Stable Respiratory Status: Normal, Stable Level of Consciousness/Mental Status: Can Participate in Eval Pain Control: Adequate, Prn Tx Ordered Nausea/Vomiting Control: Adequate, Prn Tx Ordered Complications Possibly Related to Anesthesia: None Noted
[2018-05-22 14:11] VITALS: BP 120/86
--- NOTE | 2018-05-22 15:59 | GOP ---
[f rep st] OPERATIVE REPORT DATE OF OPERATION: 05/22/2018 SURGEON: Dawood Perry MD, FACS STEEL TIER: Erendira Olson RN-FA PREOPERATIVE DIAGNOSIS: Paget's disease of the left nipple. POSTOPERATIVE DIAGNOSIS: Paget's disease of the left nipple. PROCEDURE PERFORMED: 1. Left central partial mastectomy. 2. Spraggs lymph node mapping and biopsy. FINDINGS: 3/3 sentinel nodes negative ESTIMATED BLOOD LOSS: 25 cc. INDICATIONS: Patient is a 37-year-old female with biopsy confirmed Paget's disease of the left nipple with negative preoperative MRI staging, admitted for central lumpectomy and sentinel node mapping. The patient had genetic testing, which showed no evidence of identifiable mutation and elected for breast conservation, understanding the alternative of mastectomy with or without reconstruction. DESCRIPTION OF PROCEDURE: After informed consent was obtained, the patient was brought to the operating room and placed under general anesthesia. Left arm was extended. The breast, axilla, shoulder, and neck were prepped and draped in usual fashion. Patient had undergone preoperative sentinel lymph node injection and had some mild bruising around the nipple. Before proceeding, a time-out and identification of the patient was performed. The Neoprobe (gamma detector) was brought into the field in sterile sheath and was used to interrogate the axilla. The point of maximum activity was identified and marked on skin with a marking pen. The skin was infiltrated with 0.25% Marcaine with epinephrine and incised transversely near the base of the axilla. Dissection was carried out with cautery through the subcutaneous fat and the deep axillary fascia. Following the point of maximum activity using the gamma detector, the first sentinel node was identified and registered counts above 2500 counts per minute. This packet of fatty tissue was from the surrounding axillary tissue. Lymphovascular structures were hemoclipped and divided, and the specimen was removed from the field and noted to contain 2 lymph nodes, both of which met criteria for sentinel nodes. They were not clinically suspicious. A third sentinel node was identified meeting criteria and was extirpated in a similar fashion and submitted as sentinel node #2. A small amount of axillary fatty tissue was submitted as non-sentinel node. Hemostasis appeared secure within the operative field. The incision was left open while we were waiting for the results of the sentinel node. Attention was then directed to the lumpectomy portion of the procedure. The skin had been marked on this surface with a marking pen. An elliptical incision was planned, transversely oriented encompassing the nipple-areolar complex. This area was infiltrated with 0.25% Marcaine, incised with a scalpel , and deep dissection performed with cautery excising a wedge of tissue measuring approximately 3 cm deep, 10 cm in width, and 3 to 4 cm in craniocaudal dimension. The specimen was removed from the field and noted to contain multiple dilated ducts, particularly in the upper outer quadrant with inspissated galactorrhea. The specimen was marked with a margin-marker kit, and submitted for permanent section. Hemostasis was secured within the cavity. The adjacent deep tissues were mobilized and approximated with interrupted 2-0 Vicryl sutures for immediate reconstruction. The subcutaneous tissues were approximated with a running 3-0 Monocryl suture and the skin closed with a 4-0 Monocryl suture in a subcuticular fashion. In the interim, the sentinel nodes were reported to be negative by frozen section. The axillary incision and cavity were inspected and hemostasis appeared secure. This incision was closed with interrupted 3-0 Monocryl sutures and 4-0 Monocryl suture in a subcuticular fashion for the skin. Topical Dermabond was applied. The patient was returned extubated to the recovery room in satisfactory condition. COUNTS: Needle, sponge, and instrument count were correct. COMPLICATIONS: None. /[id number]/MODL MTDD
== END 2018-05-22 14:27 | disposition home or self-care (01) ==
LOC: FSGY 08:28
PROVIDERS: ATTEND Surgery
PROC: 07B60ZZ Excision of Left Axillary Lymphatic, Open Approach (ICD-10-PCS; principal; 2018-05-22 11:00)
PROC: 0HBU0ZZ Excision of Left Breast, Open Approach (ICD-10-PCS; principal; 2018-05-22 11:00)
DX: C50.012 Malignant neoplasm of nipple and areola, left female breast (principal); D05.12 Intraductal carcinoma in situ of left breast; J45.909 Unspecified asthma, uncomplicated; I10 Essential (primary) hypertension
CPT/HCPCS: 19302; 19366; 78195; A9520; J0690; J1100; J1885; J2250; J2405; J2704; J2765; J2780; J3010; Q9968